=== PATIENT | male | born 1965 | race Caucasian/White ===

== ENCOUNTER → 2020-11-06 | Outpatient (CLI) | payer MEDICAID ==
--- NOTE | 2020-11-06 09:11 | REP ---
INDICATION: TRIGGER RING FINGER OF RIGHT HAND COMPARISON: None. TECHNIQUE: AP, lateral, bilateral oblique views right hand. FINDINGS: No evidence for acute fracture or dislocation. Generalized age-related changes include very minimal subchondral sclerosis and joint space narrowing at the interphalangeal joints. No obvious fixed contracture noted. No subcutaneous emphysema or abnormal calcifications/loose bodies. IMPRESSION: Generalized age-related degenerative changes. <Electronically signed by Mark Alvares > 11/06/20 [id number]
== END ==
LOC: EDSEX 08:21 → M CLY 08:21
PROVIDERS: ATTEND Family Medicine
DX: M65.341 Trigger finger, right ring finger (principal)